=== PATIENT | male | born 2000 | race Two or more races ===

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

== ENCOUNTER 2022-03-17 15:09 | Emergency (ER) | payer OTHER ==
[2022-03-17 15:39] VITALS: BP 116/55; PULSE 98; TEMP 99.4; BMI 19.0
[2022-03-17] MEDS ORDERED: IBUPROFEN 600 MG TABLET (FP) PO ONE ×2 (16:02→16:04)
== END 2022-03-17 16:05 | disposition home or self-care (01) ==
LOC: JER 15:09
DX: B34.9 Viral infection, unspecified (principal)
CPT/HCPCS: 0241U-QW; 99283-25

== ENCOUNTER 2022-09-13 00:27 | Emergency (ER) | payer OTHER ==
[2022-09-13 00:30] VITALS: BP 102/61; PULSE 82; RESP 18; TEMP 97.4; BMI 18.2
[2022-09-13] MEDS ORDERED: diphenhydrAMINE HCL 25 MG CAPSULE (FP) PO ONE ×2 (01:24→01:54)
== END 2022-09-13 02:03 | disposition home or self-care (01) ==
LOC: JER 00:27
DX: L30.9 Dermatitis, unspecified (principal)
CPT/HCPCS: 99283-25